=== PATIENT | female | born 1975 | race American Indian/Alaskan Native ===

== ENCOUNTER 2017-08-30 06:11 | Emergency (ER) | payer OTHER ==
[2017-08-30 07:51] LABS: Basophils # (Auto) 0.1 K/mm3 (0.0-0.1); Basophils % (Auto) 0.8 % (0.0-1.8); Eosinophils # (Auto) 0.1 K/mm3 (0.0-0.4); Eosinophils % (Auto) 0.7 % (0.0-4.3); Lymphocytes # (Auto) 3.6 K/mm3 (1.2-5.4); Lymphocytes % (Auto) 33.1 % (13.4-35.0); Mean Corpuscular HGB Conc 33 % (30-34); Mean Corpuscular Hemoglobin 30 pg (28-32); Mean Corpuscular Volume 89 fl (79-97); Monocytes # (Auto) 0.7 K/mm3 (0.0-0.8); Platelet Count 253 K/mm3 (140-440); Red Blood Count 4.39 M/mm3 (3.65-5.03); Red Cell Distribution Width 15.1 % (13.2-15.2)
[2017-08-30 07:58] LABS: BUN/Creatinine Ratio 8; Blood Urea Nitrogen 5 mg/dL (7-17); Calcium 8.4 mg/dL (8.4-10.2); Hemolysis Index 6
--- NOTE | 2017-08-30 08:36 | XRay Report ---
LEFT FOOT, 2 views: History: Wound. The bony architecture is intact. Bony alignment is normal. No soft tissue abnormalities are seen. The joint spaces appear preserved. IMPRESSION: Unremarkable left foot. No abnormality is identified.
[2017-08-30] MEDS ORDERED: BOOSTRIX IM ONE (10:23)
[2017-08-30] MEDS ORDERED: NORCO 5/325 PO ONE (10:23)
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
[2017-08-30 10:45] VITALS: BP 111/69
== END 2017-08-30 10:55 | disposition home or self-care (01) ==
LOC: ED 06:11
DX: S91.302A Unspecified open wound, left foot, initial encounter (principal); E11.9 Type 2 diabetes mellitus without complications; F17.200 Nicotine dependence, unspecified, uncomplicated; W22.8XXA Striking against or struck by other objects, initial encounter; Y93.89 Activity, other specified; Y99.8 Other external cause status; Y92.009 Unspecified place in unspecified non-institutional (private) residence as the place of occurrence of the external cause
CPT/HCPCS: 36415; 80048; 82962; 84703; 85025; 90471; 90715

== ENCOUNTER 2017-12-11 02:18 | Emergency (ER) | payer MEDICAID ==
[2017-12-11] MEDS ORDERED: MOTRIN PO ONE (05:05)
--- NOTE | 2017-12-11 05:40 | XRay Report ---
FINAL REPORT EXAM: XR SCAPULA RT HISTORY: Right scapular pain TECHNIQUE: Two views of the right scapula were obtained. FINDINGS: There are no skeletal or soft tissue abnormalities. IMPRESSION: Within normal limits.
--- NOTE | 2017-12-11 05:40 | XRay Report ---
FINAL REPORT EXAM: XR SPINE LUMBOSACRAL 2-3V HISTORY: Lower back pain TECHNIQUE: Five views of the lumbar spine were submitted. FINDINGS: The disc heights and alignment are well maintained. There is no evidence acute fracture. There is facet arthropathy changes in the lower lumbar spine. The SI joints appear normal. The soft tissues reveal calcification of the abdominal aorta. IMPRESSION: Hypertrophic facet arthropathy changes in the lower lumbar spine. No acute fracture identified.
[2017-12-11 06:32] LABS: HCG Qualitative,Urine Negative (Negative)
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
[2017-12-11 06:37] LABS: Amorphous Crystals,Urine Few; Bacteria,Urine 4+ /HPF (Negative); Bilirubin,Urine NEG (Negative); Blood,Urine NEG (Negative); Color,Urine Yellow (Yellow); RBC,Urine < 1.0 /HPF (0.0-6.0)
[2017-12-11] MEDS ORDERED: TORADOL ONE (06:47)
[2017-12-11] MEDS ORDERED: TORADOL IM ONE (06:50)
[2017-12-11 07:21] VITALS: BP 154/100
== END 2017-12-11 07:05 | disposition home or self-care (01) ==
LOC: ED 02:18
DX: S46.811A Strain of other muscles, fascia and tendons at shoulder and upper arm level, right arm, initial encounter (principal); M54.42 Lumbago with sciatica, left side; E11.9 Type 2 diabetes mellitus without complications; F17.200 Nicotine dependence, unspecified, uncomplicated; X58.XXXA Exposure to other specified factors, initial encounter; Y93.89 Activity, other specified; Y92.89 Other specified places as the place of occurrence of the external cause; Y99.8 Other external cause status
CPT/HCPCS: 72100; 73010; 81001; 81025; 82962; 96372; 99284; J1885

== ENCOUNTER 2018-09-02 21:44 | Emergency (ER) | payer OTHER ==
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
[2018-09-02 21:57] VITALS: BP 157/100
--- NOTE | 2018-09-02 23:16 | XRay Report ---
PROCEDURE: XR SHOULDER 2+V LT TECHNIQUE: Frontal and Y views left shoulder HISTORY: left shoulder pain COMPARISONS: None FINDINGS: There is no evidence of fracture or subluxation. The joint spaces appear to be maintained. The soft tissues are unremarkable. IMPRESSION: 1. No plain film evidence of bony or soft tissue abnormality. If further imaging is required, MRI may be helpful. This document is electronically signed by Sofiya Macias MD., September 02 2018 11:14:21 PM ET
[2018-09-03] MEDS ORDERED: NORCO 5/325 PO ONE (00:22)
[2018-09-03] MEDS ORDERED: TORADOL IM ONE (00:22)
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
== END 2018-09-03 01:02 | disposition home or self-care (01) ==
LOC: ED 21:44
DX: S40.012A Contusion of left shoulder, initial encounter (principal); E11.9 Type 2 diabetes mellitus without complications; F17.200 Nicotine dependence, unspecified, uncomplicated; W22.01XA Walked into wall, initial encounter; Y93.89 Activity, other specified; Y92.89 Other specified places as the place of occurrence of the external cause; Y99.8 Other external cause status
CPT/HCPCS: 73030; 96372; 99284; J1885

== ENCOUNTER 2019-05-15 16:25 | Emergency (ER) | payer MEDICAID, OTHER ==
[2019-05-15 17:15] VITALS: BP 126/92
--- NOTE | 2019-05-15 17:16 | Event Note ---
ED Screening Note Date of service: 05/15/19 Time: 17:15 ED Screening Note: 43 y o female presents cp with coughinhg and sob x krishna worsening x 2 days cc of coughing productive with shepard,and back pain This initial assessment/diagnostic orders/clinical plan/treatment(s) is/are subject to change based on patients health status, clinical progression and re- assessment by fellow clinical providers in the ED. Further treatment and workup at subsequent clinical providers discretion. Patient/guardian urged not to elope from the ED as their condition may be serious if not clinically assessed and managed. Initial orders include: cvr
--- NOTE | 2019-05-15 17:52 | XRay Report ---
CHEST 2 VIEWS INDICATION / CLINICAL INFORMATION: cough/sob. COMPARISON: None available. FINDINGS: SUPPORT DEVICES: None. HEART / MEDIASTINUM: No significant abnormality. LUNGS / PLEURA: No significant pulmonary or pleural abnormality. No pneumothorax. ADDITIONAL FINDINGS: No significant additional findings. IMPRESSION: 1. No acute findings. Signer Name: Jaziel Heredia MD Signed: 05/15/2019 5:48 PM Workstation Name: [id number]
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
== END 2019-05-15 20:42 | disposition home or self-care (01) ==
LOC: ED 16:25
DX: J20.9 Acute bronchitis, unspecified (principal); E11.9 Type 2 diabetes mellitus without complications; M54.9 Dorsalgia, unspecified; G89.29 Other chronic pain; F17.200 Nicotine dependence, unspecified, uncomplicated; Z79.899 Other long term (current) drug therapy; Z88.8 Allergy status to other drugs, medicaments and biological substances
CPT/HCPCS: 71046

== ENCOUNTER 2021-04-11 15:18 | Emergency (ER) | payer SELFPAY ==
[2021-04-11 15:55] VITALS: BP 149/98
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
== END 2021-04-11 16:47 | disposition home or self-care (01) ==
LOC: ED 15:18
DX: R03.0 Elevated blood-pressure reading, without diagnosis of hypertension (principal); R51.9 Headache, unspecified; E11.9 Type 2 diabetes mellitus without complications; F17.200 Nicotine dependence, unspecified, uncomplicated; G89.29 Other chronic pain; Z98.890 Other specified postprocedural states; Z79.899 Other long term (current) drug therapy; Z88.6 Allergy status to analgesic agent
CPT/HCPCS: 99282

== ENCOUNTER 2021-05-15 00:40 | Emergency (ER) | payer MEDICAID ==
[2021-05-15] MEDS ORDERED: ONDANSETRON 4 MG/2 ML INJ IV ONE (01:01)
[2021-05-15] MEDS ORDERED: fentaNYL 100 MCG/2 ML INJ IV ONE (01:01)
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
[2021-05-15 01:55] LABS: Basophils # (Auto) 0.1 K/mm3 (0.0-0.1); Basophils % (Auto) 0.6 % (0.0-1.8); Eosinophils # (Auto) 0.1 K/mm3 (0.0-0.4); Eosinophils % (Auto) 0.9 % (0.0-4.3); Hematocrit 38.4 % (30.3-42.9); Hemoglobin 12.1 gm/dl (10.1-14.3); Lymphocytes # (Auto) 3.6 K/mm3 (1.2-5.4); Lymphocytes % (Auto) 28.2 % (13.4-35.0); Mean Corpuscular HGB Conc 32 % (30-34); Mean Corpuscular Volume 88 fl (79-97); Monocytes # (Auto) 0.9 K/mm3 (0.0-0.8); Monocytes % (Auto) 6.9 % (0.0-7.3); Platelet Count 289 K/mm3 (140-440); Red Blood Count 4.35 M/mm3 (3.65-5.03); Red Cell Distribution Width 14.7 % (13.2-15.2)
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
--- NOTE | 2021-05-15 02:01 | XRay Report ---
Thoracic spine, 3 views HISTORY: Pain COMPARISON: None FINDINGS: Alignment is normal. Mild multilevel thoracic spondylosis. Vertebral body heights are intac t. No acute fracture. Visualized lungs are clear. Soft tissues are unremarkable. IMPRESSION: No acute process. Signer Name: Nilson Barragan MD Signed: 05/15/2021 1:56 AM Workstation Name: [id number]
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
[2021-05-15 02:28] LABS: Alanine Aminotransferase 12 units/L (7-56); Albumin 3.5 g/dL (3.9-5); BUN/Creatinine Ratio 8; Blood Urea Nitrogen 9 mg/dL (7-17); Calcium 8.6 mg/dL (8.4-10.2); Hemolysis Index 2
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
[2021-05-15 05:15] VITALS: BP 134/85
== END 2021-05-15 04:48 | disposition home or self-care (01) ==
LOC: ED 00:40
DX: S02.2XXK Fracture of nasal bones, subsequent encounter for fracture with nonunion (principal); M25.512 Pain in left shoulder; M25.511 Pain in right shoulder; S29.012A Strain of muscle and tendon of back wall of thorax, initial encounter; S16.1XXA Strain of muscle, fascia and tendon at neck level, initial encounter; R10.9 Unspecified abdominal pain; S70.02XA Contusion of left hip, initial encounter; S09.8XXA Other specified injuries of head, initial encounter; V43.52XA Car driver injured in collision with other type car in traffic accident, initial encounter; W22.19XA Striking against or struck by other automobile airbag, initial encounter; Y93.89 Activity, other specified; Y92.89 Other specified places as the place of occurrence of the external cause; Y99.8 Other external cause status
CPT/HCPCS: 36415; 70450; 71046; 72072; 72125; 73030; 73502; 74177; 80053; 83690; 84703; 85025; 96374; 96375; 99284; J2405; J3010; Q9967

== ENCOUNTER 2021-06-13 21:50 | Inpatient (IN) | payer MEDICAID, OTHER ==
[2021-06-14] MEDS ORDERED: MORPHINE 4 MG/1 ML INJ IM STA (02:39)
[2021-06-14] MEDS ORDERED: ONDANSETRON 4 MG ODT TAB PO STA (02:39)
[2021-06-14] MEDS ORDERED: RIVAROXABAN 15 MG TAB PO STA (04:37)
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
[2021-06-14] MEDS ORDERED: HEPARIN 10,000 UNITS/10 ML VIAL IV ONE (05:02)
[2021-06-14] MEDS ORDERED: HEPARIN 10,000 UNITS/10 ML VIAL IV PRN (05:02)
[2021-06-14 05:44] LABS: Hematocrit 38.8 % (30.3-42.9); Hemoglobin 12.3 gm/dl (10.1-14.3); Mean Corpuscular HGB Conc 32 % (30-34); Mean Corpuscular Volume 87 fl (79-97); Platelet Count 166 K/mm3 (140-440); Red Blood Count 4.45 M/mm3 (3.65-5.03); Red Cell Distribution Width 14.6 % (13.2-15.2)
[2021-06-14 05:52] LABS: INR 0.87 (0.87-1.13); Partial Thromboplastin Time 26.9 Sec. (24.2-36.6)
[2021-06-14] MEDS: HEPARIN/ 0.45% NACL DRIP 25,000 UNIT/500 ML BAG IV SCH (06:34)
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
[2021-06-14] MEDS ORDERED: ONDANSETRON 4 MG/2 ML INJ IV PRN (10:09)
[2021-06-14] MEDS ORDERED: NALOXONE 0.4 MG/1 ML INJ IV PRN (10:09)
[2021-06-14] MEDS ORDERED: DEXTROSE 50% IN WATER (25GM) 50 ML SYRINGE IV PRN (10:09)
[2021-06-14] MEDS ORDERED: ACETAMINOPHEN 325 MG TAB PO PRN (10:09)
[2021-06-14] MEDS ORDERED: ALBUTEROL 2.5 MG/3 ML NEBU IH PRN (10:09)
[2021-06-14] MEDS: HYDROmorphone 1 MG/1 ML INJ IV PRN ×3 (10:51→22:00)
[2021-06-14] MEDS: INSULIN LISPRO 100 UNIT/ML SUB-Q SCH ×3 (13:17→22:02)
[2021-06-14] MEDS: oxyCODONE /ACETAMINOPHEN 5-325MG TAB PO PRN (13:17)
[2021-06-14] MEDS: FAMOTIDINE 20 MG TAB PO SCH ×2 (13:17→22:00)
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
--- NOTE | 2021-06-14 15:43 | Vascular Lab Report ---
DUPLEX DOPPLER LOWER EXTREMITY ARTERIAL, BILATERAL INDICATION / CLINICAL INFORMATION: decreased pulses LLE. TECHNIQUE: Arterial duplex examination of both lower extremities performed using B-mode, color flow a nd spectral Doppler assessment. FINDINGS: RIGHT: - Atherosclerotic Plaque: No significant atherosclerotic plaque. - Elevated Velocity (>200 cm/s): None. - Abnormal Waveform: None. LEFT: - Atherosclerotic Plaque: No significant atherosclerotic plaque. - Elevated Velocity (>200 cm/s): None. - Abnormal Waveform: None. ADDITIONAL FINDINGS: None. Right DAVID: Not calculated Left DAVID: Not calculated IMPRESSION: 1. No significant lower extremity peripheral artery disease. Ankle-Brachial Index (DAVID): - Calcified arteries > 1.4 - Normal = 0.9-1.4 - Mild PAD = 0.7-0.89 - Moderate PAD = 0.51-0.69 - Severe PAD < 0.5 Doppler Waveform: - Triphasic is normal. - Biphasic is abnormal if clear transition from triphasic signal along vascular tree. - Monophasic is abnormal. Signer Name: Derek Cummings DO Signed: 06/14/2021 3:38 PM Workstation Name: [id number]
[2021-06-14] MEDS: SENNOSIDES 8.6 MG TAB PO SCH (22:00)
[2021-06-14] MEDS ORDERED: INSULIN GLARGINE 100 UNITS/ML SUB-Q SCH (22:00)
[2021-06-15 07:29] LABS: Basophils % (Auto) 0.4 % (0.0-1.8); Eosinophils # (Auto) 0.1 K/mm3 (0.0-0.4); Eosinophils % (Auto) 1.5 % (0.0-4.3); Hematocrit 33.5 % (30.3-42.9); Hemoglobin 10.7 gm/dl (10.1-14.3); Lymphocytes # (Auto) 2.4 K/mm3 (1.2-5.4); Lymphocytes % (Auto) 32.6 % (13.4-35.0); Mean Corpuscular HGB Conc 32 % (30-34); Mean Corpuscular Volume 86 fl (79-97); Monocytes # (Auto) 0.6 K/mm3 (0.0-0.8); Monocytes % (Auto) 7.6 % (0.0-7.3); Platelet Count 160 K/mm3 (140-440); Red Blood Count 3.88 M/mm3 (3.65-5.03); Red Cell Distribution Width 14.4 % (13.2-15.2)
[2021-06-15 07:50] LABS: Alanine Aminotransferase 8 units/L (7-56); Albumin 2.9 g/dL (3.9-5); BUN/Creatinine Ratio 10; Blood Urea Nitrogen 9 mg/dL (7-17); Calcium 8.2 mg/dL (8.4-10.2); Hemolysis Index 1
[2021-06-15] MEDS: oxyCODONE /ACETAMINOPHEN 5-325MG TAB PO PRN ×2 (08:33→17:17)
[2021-06-15] MEDS: SENNOSIDES 8.6 MG TAB PO SCH ×2 (08:33→13:26)
[2021-06-15] MEDS: FAMOTIDINE 20 MG TAB PO SCH ×2 (08:33→13:26)
[2021-06-15] MEDS: INSULIN LISPRO 100 UNIT/ML SUB-Q SCH ×3 (08:34→17:18)
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
[2021-06-15] MEDS: HYDROmorphone 1 MG/1 ML INJ IV PRN (11:28)
[2021-06-15] MEDS: HEPARIN/ 0.45% NACL DRIP 25,000 UNIT/500 ML BAG IV SCH ×2 (13:10→16:02)
[2021-06-15 18:24] VITALS: BP 125/72
[2021-06-15] MEDS ORDERED: APIXABAN 5 MG TAB PO ONE (18:42)
[2021-06-15] MEDS ORDERED: APIXABAN 5 MG TAB PO SCH (22:00)
[2021-06-22] MEDS ORDERED: APIXABAN 5 MG TAB PO SCH (10:00)
== END 2021-06-15 20:31 | disposition home or self-care (01) | DRG 301 ==
LOC: ED 21:50 → 3A 06-14 07:36
PROVIDERS: ADMIT Internal Medicine; ATTEND Internal Medicine
DX: I82.4Y2 Acute embolism and thrombosis of unspecified deep veins of left proximal lower extremity (principal); F17.200 Nicotine dependence, unspecified, uncomplicated; E11.9 Type 2 diabetes mellitus without complications; E66.01 Morbid (severe) obesity due to excess calories; Z68.35 Body mass index [BMI] 35.0-35.9, adult; Z20.822 Contact with and (suspected) exposure to COVID-19
CPT/HCPCS: 36415; 80053; 82565; 82962; 85025; 85027; 85520; 85610; 85730; 93925; 99285; G0378; J3490; Q9967; J1170; J1644; J1815; J2270; Q0162